=== PATIENT | male | born 2000 | race Caucasian/White ===

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

== ENCOUNTER 2018-12-10 18:40 | Emergency (ER) | payer OTHER ==
[~2018-12-10] VITALS: Ht 162.6 cm; Wt 50.8 kg
[2018-12-10 18:44] VITALS: Ht 162.6 cm; Wt 50.8 kg
[2018-12-10 20:19] VITALS: BP 119/64
== END 2018-12-10 20:19 | disposition home or self-care (01) ==
LOC: ED 18:40
DX: J06.9 Acute upper respiratory infection, unspecified (principal); J45.909 Unspecified asthma, uncomplicated

== ENCOUNTER 2019-01-29 20:19 | Emergency (ER) | payer OTHER ==
[~2019-01-29] VITALS: Ht 162.6 cm; Wt 50.3 kg
[2019-01-29 20:31] VITALS: Ht 162.6 cm; Wt 50.3 kg
[2019-01-29 22:29] VITALS: BP 135/68
== END 2019-01-29 22:29 | disposition home or self-care (01) ==
LOC: ED 20:19
DX: R07.89 Other chest pain (principal); J45.909 Unspecified asthma, uncomplicated
CPT/HCPCS: Q0092

== ENCOUNTER 2019-05-12 20:45 | Emergency (ER) | payer OTHER ==
[~2019-05-12] VITALS: Ht 162.6 cm; Wt 49.0 kg
[2019-05-12 20:51] VITALS: Ht 162.6 cm; Wt 49.0 kg
[2019-05-13 00:41] VITALS: BP 112/56
== END 2019-05-13 00:41 | disposition home or self-care (01) ==
LOC: ED 20:45
DX: R07.89 Other chest pain (principal); F41.9 Anxiety disorder, unspecified; J45.909 Unspecified asthma, uncomplicated

== ENCOUNTER 2019-09-22 10:14 | Emergency (ER) | payer OTHER ==
[~2019-09-22] VITALS: Ht 160 cm; Wt 50.3 kg
[2019-09-22 10:23] VITALS: BP 136/73; Ht 160 cm; Wt 50.3 kg
== END 2019-09-22 12:15 | disposition home or self-care (01) ==
LOC: ED 10:14
DX: J45.901 Unspecified asthma with (acute) exacerbation (principal)
CPT/HCPCS: J2930; J7613; J7644